=== PATIENT | male | born 1985 | race Caucasian/White ===

== ENCOUNTER 2017-06-28 13:52 | Emergency (ER) | payer BC ==
[2017-06-28] MEDS ORDERED: LIDOCAINE 1% INJ-PF (10 MG/ML) 30 ML SDV INJ ONE (14:24)
[2017-06-28] MEDS ORDERED: DOXYCYCLINE HYCLATE 100 MG TABLET PO ONE (14:25)
[2017-06-28] MEDS ORDERED: ACETAMINOPHEN 325 MG TABLET PO ONE (14:25)
--- NOTE | 2017-06-28 14:47 | ER Document Report ---
ED Wound - General Chief Complaint: Laceration Stated Complaint: LEFT FOOT INJURY Time Seen by Provider: 06/28/17 14:24 TRAVEL OUTSIDE OF THE [place] IN LAST 30 DAYS: No - HPI Patient complains to provider of: Laceration Occurred: Just prior to arrival Onset/Duration: Sudden Quality of pain: No pain Context: Injury - kicked a fin of a surf [place] Skin Color: Normal Capillary refill: < 3 seconds Sensations intact: Yes Distal pulses present: Yes Associated Symptoms: None Notes: patient states he is UTD on tetanus - Related Data Allergies/Adverse Reactions: No Known Allergies Allergy (Unverified 06/28/17 14:43) Past Medical History - Social History Smoking Status: Unknown if Ever Smoked Family History: Reviewed & Not Pertinent Patient has suicidal ideation: No Patient has homicidal ideation: No Renal/ Medical History: Denies: Hx Peritoneal Dialysis Review of Systems - Review of Systems Constitutional: No symptoms reported Musculoskeletal: No symptoms reported Skin: See HPI -: Yes All other systems reviewed and negative Physical Exam - Vital signs Vitals: Temp Pulse BP Pulse Ox 98.3 F 103 H 125/85 97 06/28/17 14:10 06/28/17 14:10 06/28/17 14:10 06/28/17 14:10 - General General appearance: Appears well, Alert In distress: None - Cardiovascular Pulses: Normal: Dorsalis pedis Normal capillary refill: Yes - Extremities Calf: Normal, Nontender Ankle: Normal, Nontender Foot: Normal, Nontender, Laceration. No: Deformity, Ecchymosis, Edema, Instability, Metatarsal compress. pain, Nail injury, Navicular tenderness, No evidence of FB, Puncture wound, Tender 5th metatarsal, Unable to bear weight - Skin Skin irregularity: Laceration - liner incision between the 3rd and 4th digit on the left foot, no active bleeding, debris, FB Course - Re-evaluation Re-evalutation: 06/28/17 15:48 Patient is a 32-year-old male who is hemodynamically stable, no acute distress. Wound was irrigated and closed using 5-0 nylon at the bedside. Patient tolerated procedure well. Will return in 8-10 days for suture removal. After performing a Medical Screening Examination, I estimate there is LOW risk for OPEN FRACTURE, COMPARTMENT SYNDROME, TENDON RUPTURE, ACUTE NEUROVASCULAR INJURY, or RETAINED FOREIGN BODY, thus I consider the discharge disposition reasonable. Also, there is no evidence or peritonitis, sepsis, or toxicity. I have reevaluated this patient multiple times and no significant life threatening changes are noted. The patient and I have discussed the diagnosis and risks, and we agree with discharging home with close follow-up with the understanding that symptoms and presentations can change. We also discussed returning to the Emergency Department immediately if new or worsening symptoms occur. We have discussed the symptoms which are most concerning (e.g., changing or worsening pain, fever, numbness, weakness, cool or painful digits) that necessitate immediate return. - Vital Signs Vital signs: Temp Pulse Resp BP Pulse Ox 98.3 F 103 H 125/85 97 06/28/17 14:10 06/28/17 14:10 06/28/17 14:10 06/28/17 14:10 Procedures - Laceration/Wound Repair Left Foot Wound length (cm): 3.5 Wound's Depth, Shape: Linear. No: Into muscle Laceration pre-procedure: Sterile PPE donned, Betadine prep applied Anesthetic type: 1% Lidocaine Volume Anesthetic (mLs): 5 Wound explored: Clean Irrigated w/ Saline (mLs): 2,000 Wound Repaired With: Sutures Suture Size/Type: 5:0, Nylon Number of Sutures: 6 Post-procedure wound care: Sterile dressing applied Post-procedure NV exam normal: Yes Complications: No Discharge - Discharge Clinical Impression: Laceration Condition: Good Disposition: HOME, SELF-CARE Instructions: Doxycycline ([facility]) Additional Instructions: LACERATION CARE: Your laceration has been sutured to keep the skin edges aligned during healing. The time of suture removal depends on the nature and location of your cut. Please follow the care instructions the doctor has outlined for you and return for further care, according to the schedule you've been given. Keep the wound and dressing clean. Unless you were told otherwise, you may shower daily, blotting the wound dry with a clean, unused towel. At other times, If the dressing gets wet or blood soaked, remove it and blot the wound dry, then reapply a new dressing. Unless you were instructed otherwise, dressings should be changed at least daily. If any signs of infection occur (swelling, redness, drainage, increasing tenderness, red streaks, tender lumps in the armpit or groin above the laceration, or fever), see the doctor immediately. SOAP CLEANSING: Gently wash the wound daily using a mild soap (like Ivory, Phisoderm, Neutrogena). Use warm water, rubbing gently until all debris, ooze, and crusting have been washed from the wound. Allow to dry briefly (about 10 minutes) after cleaning. Repeat this cleansing at least three times a day for the first two days and then once or twice a day. ANTIBIOTIC OINTMENT PROTECTION: Your wounds are such that dressing them is not practical or optional. After cleansing, you should apply a thin coating of antibiotic ointment ( Bacitracin, not Neosporin) to the wounds at least three times daily. This lessens infection risk, and may decrease the amount of scarring. Use a q-tip or dull butter knife, not your finger, to apply this ointment. Any debris or ooze which builds up in the ointment should be gently rubbed off with a sterile gauze pad. Harder crusting may need to be gently scrubbed off with a clean wash cloth with soap and warm water, perhaps applying a warm, wet wash cloth to the wound for ten minutes first. Development of redness, severe itching, or blistering may mean allergy to the ointment. See the doctor. PROPHYLACTIC ANTIBIOTIC: The antibiotics which have been prescribed are designed to decrease the risk of infection. Only certain types of wounds benefit from this -- the typical cut, scrape, or burn DOES NOT require antibiotics. Of course, infection can still occur despite the use of prophylactic antibiotics. Your wound will heal with less chance of an infectious complication if you take the medication as directed. The most important dose is the FIRST dose, so don't delay filling the prescription! FOLLOW-UP CARE: Your sutures should be removed in 8-10 days. To facilitate a timely removal of your sutures, you may return to the Emergency [facility]. You do not need to call for an appointment, but the best time to come in for suture removal is early in the morning. If you have been referred to another physician for follow-up care, call that physicians office for an appointment as you were instructed. If you experience a significant change in your laceration, or if you are concerned there may be an infection (swelling, redness, drainage, increasing tenderness, red streaks, tender lumps in the armpit or groin above the laceration, or fever) , return to the Emergency Department immediately re-evaluation. Prescriptions: Doxycycline Hyclate 100 mg PO BID #20 capsule
[2017-06-28 15:53] VITALS: BP 122/82
== END 2017-06-28 15:53 | disposition home or self-care (01) ==
LOC: ER 13:52
PROC: 0HQNXZZ Repair Left Foot Skin, External Approach (ICD-10-PCS; principal; 2017-06-28)
DX: S91.312A Laceration without foreign body, left foot, initial encounter (principal); W21.89XA Striking against or struck by other sports equipment, initial encounter; Y92.832 Beach as the place of occurrence of the external cause
CPT/HCPCS: 99282; 12002; J3490

== ENCOUNTER → 2018-01-11 | Day surgery (SDC) | payer BC, OTHER ==
[~2018-01-11] MED LIST: LIDOCAINE 1% INJ-PF (10 MG/ML) 30 ML SDV ONE
--- NOTE | 2018-01-11 13:25 | RADIOLOGY REPORT (SQ) ---
EXAM DESCRIPTION: ARTHRO HIP INJ W/ANESTHESIA COMPLETE DATE/TIME: 01/11/2018 1:15 pm REASON FOR STUDY: M25.851 OTHER SPECIFIED JOINT DISORDERS, RIGHT HIP M25.851 OTHER SPECIFIED JOINT DISORDERS, RIGHT HIP FINDINGS: Please see combined report for performance of procedure and radiologic supervision and int erpretation. IMPRESSION: Please see combined report for performance of procedure and radiologic supervision and i nterpretation. Reading location - IP/workstation name: [email or web address]
--- NOTE | 2018-01-11 13:31 | RADIOLOGY REPORT (SQ) ---
EXAM DESCRIPTION: FLUORO/NEEDLE PLACEMENT COMPLETED DATE/TIME: 01/11/2018 1:15 pm REASON FOR STUDY: M25.851 OTHER SPECIFIED JOINT DISORDERS, RIGHT HIP M25.851 OTHER SPECIFIED JOINT DISORDERS, RIGHT HIP COMPARISON: None. FLUOROSCOPY TIME: 8 seconds 1 images saved to PACS. LIMITATIONS: None. PROCEDURE: Procedure, risks, benefits and alternatives explained to patient who then gave written c onsent. The right hip was marked and a time-out was called for correct marking verification. Entry site marked using fluoroscopic guidance. Hip prepped and draped using sterile technique. Local ane sthesia achieved using 1% lidocaine injection. Hypodermic needle introduced into the joint space un anali direct fluoroscopic visualization. Non-ionic contrast instilled to confirm intra-articular posit ion. Dilute gadolinium solution then injected. Needle removed and entry site covered with sterile bandage. No immediate complications noted. TECHNIQUE: Digital images acquired during fluoroscopy and stored on PACS. Patient immediately take n to the MR suite for additional imaging. INJECTION LOCATION: Anterior CONTRAST TYPE AND AMOUNT: 8 mL ProHance solution IMPRESSION: SUCCESSFUL NEEDLE PLACEMENT AND INJECTION FOR right HIP MR ARTHROGRAM. COMMENT: Quality ID [id number]: Final reports for procedures using fluoroscopy that document radiation exp osure indices, or exposure time and number of fluorographic images (if radiation exposure indices are not available) TECHNICAL DOCUMENTATION: JOB ID: [id number] [employer]- All Rights Reserved Reading location - IP/workstation name: [email or web address]
--- NOTE | 2018-01-11 14:53 | RADIOLOGY REPORT (SQ) ---
EXAM DESCRIPTION: MRI RT LOWER JOINT WITH COMPLETED DATE/TIME: 01/11/2018 1:49 pm REASON FOR STUDY: M25.851 OTHER SPECIFIED JOINT DISORDERS, RIGHT HIP M25.851 OTHER SPECIFIED JOINT DISORDERS, RIGHT HIP COMPARISON: Right hip arthrogram same date TECHNIQUE: Post arthrogram righthip images acquired and stored on PACS. Multiplanar images to includ e fat sensitive sequences as T1, fluid sensitive sequences as T2/STIR and gradient echo sequences. La rge FOV fat and fluid sensitive sequences include pelvis and opposite hip. LIMITATIONS: None. FINDINGS: BONE CORTEX AND MARROW: No generalized marrow replacement. No occult fracture. No worriso me bone lesions. Right HIP: FEMORAL HEAD: No occult fracture. No osteophytes or subchondral cysts. Normal sphericity of femoral h ead/neck junction. No acetabular dysplasia. No evidence femoroacetabular impingement. No significant effusion. ACETABULUM: No acetabular dysplasia. No subchondral cysts. LABRUM: No loss of cartilage or delamination. Labrum is intact. No paralabral cysts. TROCHANTER: No trochanteric bursal effusion. No edema/fluid at the insertions of the gluteus medius and gluteus minimus. Left HIP: There is a tear in the left hip joint capsule about 13 mm in diameter, best shown on neves l images 8-12. No significant effusion. Left hip articular cartilage and labrum grossly intact. N o trochanteric inflammation PELVIS, LOWER LUMBAR SPINE, SACROILIAC JOINTS: PELVIS : No insufficiency/stress fractures. No significant degenerative changes. Sacroiliac joints normal. L SPINE: No significant osteophytes or degenerative changes of the visualized lumbar spine. MUSCLES AND SOFT TISSUES: Adductors and piriformis normal. Abductors and greater trochanteric bursa n ormal without edema or fluid. Iliopsoas bursa without fluid. Hamstring attachments without edema or t ear. PELVIC SOFT TISSUES: No masses or adenopathy. SCIATIC NERVE: Identified, without masses or abnormal signal. OTHER: No other significant finding. IMPRESSION: Unremarkable right hip arthrogram. Capsular tear left hip joint TECHNICAL DOCUMENTATION: JOB ID: [id number] [employer]- All Rights Reserved Reading location - IP/workstation name: [email or web address]
== END ==
LOC: RAD 12:19 → EDSTATUS 13:00
PROVIDERS: ATTEND Orthopaedic Surgery Sports Medicine
PROC: BQ00ZZZ Plain Radiography of Right Hip (ICD-10-PCS; principal; 2018-01-11)
DX: M25.851 Other specified joint disorders, right hip (principal)
CPT/HCPCS: 73722; 77002; 27095; J3490